=== PATIENT | male | born 2005 | race Two or more races ===

== ENCOUNTER 2025-01-11 16:14 | Emergency (ER) | payer MEDICAID, SELFPAY ==
[2025-01-11 16:21] VITALS: BP 126/86; PULSE 102; RESP 20; TEMP 36.7; O2SAT 95
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
[2025-01-11 17:41] VITALS: BP 140/82; PULSE 87; RESP 18; O2SAT 97
== END 2025-01-11 17:42 | disposition home or self-care (01) ==
LOC: SERX 17:18
PROVIDERS: Emergency Provider Family Medicine; PCP Family Medicine
DX: S00.81XA Abrasion of other part of head, initial encounter (principal); S00.01XA Abrasion of scalp, initial encounter; S40.812A Abrasion of left upper arm, initial encounter; S40.811A Abrasion of right upper arm, initial encounter; S80.812A Abrasion, left lower leg, initial encounter; V86.05XA Driver of 3- or 4- wheeled all-terrain vehicle (ATV) injured in traffic accident, initial encounter
CPT/HCPCS: 99282